=== PATIENT | female | born 2000 | race Caucasian/White ===

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

== ENCOUNTER 2018-01-02 13:27 | Emergency (ER) | payer BC, OTHER | END 2018-01-02 14:20 | disposition home or self-care (01) | LOC: ERS 13:27 | DX: O21.9 Vomiting of pregnancy, unspecified (principal); Z3A.09 9 weeks gestation of pregnancy | CPT/HCPCS: 99283 ==

== ENCOUNTER 2018-02-11 08:54 | Emergency (ER) | payer BC, OTHER ==
[2018-02-11 09:21] LABS: Bilirubin Negative (Negative); Blood, Urine Negative (Negative); Clarity CLOUDY (Clear); Glucose, Urine (Dipstick) Negative (Negative); Leukocyte Small (Negative); Nitrite Negative (Negative); Protein, Urine (Dipstick) 30 mg/dL (Neg-Trace); Specific Gravity, Urine 1.019 (1.002-1.036); Urobilinogen 0.2 mg/dL (0.2-1.0)
[2018-02-11 09:22] LABS: Bacteria/HPF Rare-Few HPF (None Seen); Hyaline Casts/LPF 4-6 HYALINE CAST LPF (0-3 Hyaline); Pathc Cast-AUWi Flag 0.29 (0-2.49); RBC/HPF 0-3 HPF (0-3)
[2018-02-11 09:29] LABS: #Eosinphils 0.1 thou/uL (0.0-0.7); #Lymphocytes 0.8 thou/uL (1.20-3.40); #Monocytes 0.5 thou/uL (0.11-0.59); #Neutrophils 9.2 thou/uL (1.40-6.50); %Basophils 0.1 % (0.0-1.0); %Eosinophils 1.1 % (0.0-10.0); %Lymphocytes 7.3 % (28.0-48.0); %Monocytes 4.8 % (0.0-4.0); %Neutrophils 86.7 % (31.0-61.0); Hemoglobin 12.8 g/dL (12.0-16.0); Mean Corpuscular HGB CONC 35.5 g/dL (32.0-36.0); Mean Corpuscular Hemoglobin 31.1 pg (25.0-35.0); Mean Corpuscular Volume 87.6 fL (78.0-98.0); Mean Platelet Volume 6.8 fL (7.4-10.4); Platelet Count 180 thou/uL (130-400); RBC Distribution Width 12.2 % (11.5-14.5); Red Blood Cell (RBC) Count 4.12 mill/uL (4.00-5.20); White Blood Cell (WBC) Count 10.6 thou/uL (4.8-10.8)
[2018-02-11] MEDS ORDERED: Metoclopramide HCl 10 MG/2 ML VIAL ONE (09:31)
[2018-02-11 09:51] LABS: ALT (SGPT) 33 U/L (8-55); AST (SGOT) 21 U/L (5-30); Albumin 3.9 g/dL (3.5-5.0); Alkaline Phosphatase 55 U/L (40-150); Anion Gap 13 mmol/L (10-20); BUN (Urea Nitrogen) 10 mg/dL (8.4-21.0); Bilirubin, Total 0.3 mg/dL (0.2-1.2); Calc. Creatinine Clearance 0 mL/min (70-130); Calcium 9.5 mg/dL (7.8-10.44); Carbon Dioxide 18 mmol/L (22-29); Chloride 107 mmol/L (98-107); Estimated GFR-MDRD Greater than 90; Globulin 3.3 g/dL (2.4-3.5); Glucose 87 mg/dL (70-105); Potassium 4.3 mmol/L (3.5-5.1); Protein, Total 7.2 g/dL (6.0-8.3); Sodium 134 mmol/L (136-145)
== END 2018-02-11 11:50 | disposition home or self-care (01) ==
LOC: ERS 08:54
DX: O21.9 Vomiting of pregnancy, unspecified (principal); O23.42 Unspecified infection of urinary tract in pregnancy, second trimester; Z3A.15 15 weeks gestation of pregnancy
CPT/HCPCS: 80053; 81003; 81015; 84702; 85025; 96365; J2765

== ENCOUNTER 2018-03-07 13:29 | Outpatient (CLI) | payer BC, OTHER | END 2018-03-07 13:30 | disposition home or self-care (01) | LOC: BICULT 13:29 | PROVIDERS: ATTEND Family Medicine | DX: Z34.02 Encounter for supervision of normal first pregnancy, second trimester (principal); Z3A.20 20 weeks gestation of pregnancy | CPT/HCPCS: 76805 ==

== ENCOUNTER 2018-03-21 13:45 | Day surgery (SDC) | payer BC, OTHER ==
[2018-03-21 14:37] VITALS: BMI 33.2
--- NOTE | 2018-03-21 17:40 | PRG ---
DATE OF SERVICE: 03/21/2018 HISTORY OF PRESENT ILLNESS: The patient is a 17-year-old G1, P0 female with an intrauterine pregnanc y at 22 weeks, who is presenting to Labor and Delivery due to decreased movement today. The lashawn juradocarolee reports she has not felt her baby move and here for evaluation upon the clinic's recommendation s. The patient denies any recent illness, fever, fall, headache, chest pain, shortness of breath, na usea, vomiting, diarrhea, constipation. She denies any skin rashes, hip problems, knee problems or m uscle weakness. She denies vaginal bleeding or leakage of fluid. She denies urinary urgency. PAST MEDICAL HISTORY: Negative. PAST SURGICAL HISTORY: Includes ear tubes and tonsillectomy as a child. ALLERGIES: No known drug allergies. MEDICATIONS: vitamins. REVIEW OF SYSTEMS: Per HPI. OB LABORATORY DATA: Unavailable at time of dictation. PHYSICAL EXAMINATION: VITAL SIGNS: Blood pressure 108/63, heart rate 96, satting 98% on room air. GENERAL: She appears to be in no acute distress. She is alert and oriented, cooperative and pleasan t to interact with. HEAD: Normocephalic, atraumatic. LUNGS: Clear to auscultation bilaterally. CARDIOVASCULAR: Heart has regular rate and rhythm. ABDOMEN: Gravid, soft, nontender. EXTREMITIES: Nontender, nonedematous. GENITOURINARY: Has been deferred. Bedside ultrasound was performed showing subjectively normal fluid, an active fetus with gross body m ovements, flexion and extension, heart rate in the 140s. ASSESSMENT AND PLAN: The patient is a 17-year-old female with an intrauterine at 22 weeks, presenting for a day history of decreased movement. The patient has been given reassurance. Heart tones are within normal limits. The fetus has normal fluid and is otherwise performing expecte d activities. Reassurance has been given to the patient. She has instructions to follow up with her primary OB on the 5th of the month as scheduled. Fetus has a reactive NST and category 1 tracing.
== END 2018-03-21 15:15 | disposition home or self-care (01) ==
LOC: L&D/OP 13:45
PROVIDERS: ATTEND Family Medicine
DX: O36.8120 Decreased fetal movements, second trimester, not applicable or unspecified (principal); Z3A.22 22 weeks gestation of pregnancy
CPT/HCPCS: 76815; 99282

== ENCOUNTER 2018-05-14 08:44 | Day surgery (SDC) | payer BC, OTHER ==
[2018-05-14 09:32] VITALS: BMI 35.2
--- NOTE | 2018-05-14 10:17 | PRG ---
DATE OF SERVICE: 05/14/2018 PRESENTING COMPLAINT: Decreased movement and left lower quadrant pain at 29 weeks gestation. HISTORY OF PRESENT ILLNESS: Ms. Lao is a 17-year-old primigravida with EDC that places her at 29 weeks gestation. Antepartum record is not available. The patient reports that she has had decreased movement this morning. She also complains of approximately 6-12 hours of pain on the left karthikeyan e that starts in the groin and radiates around to her back. She denies dysuria, frequency, fever, ch ills, nausea, vomiting, vaginal discharge or rupture of membranes. OB AND [employer] HISTORY: As noted. Positive history of chlamydia in the past. PAST MEDICAL HISTORY: Previous history of tachycardia evaluated by Cardiology with Holter monitor an d no pathologic findings noted. PAST SURGICAL HISTORY: PE tubes. ALLERGIES: Denies. MEDICATIONS: vitamins. SOCIAL HISTORY: Denies tobacco, alcohol, or drug abuse. FAMILY HISTORY/REVIEW OF SYSTEMS: Noncontributory. PHYSICAL EXAMINATION: GENERAL: White female in no acute distress on initial presentation. VITAL SIGNS: The patient had a pulse of 120s to 130s with a blood pressure 100/50. When she laid do wn her blood pressure improves slightly and her pulse dropped into the 80s. A repeat tilt afterwards did not reveal maternal tachycardia. Pulse ox is 98%, temperature 98.6, respirations 18. HEENT: Within normal limits. LUNGS: Clear to auscultation bilaterally. HEART: Regular rhythm. ABDOMEN: Soft, nontender with a fundal height 30 cm. FHTs are 130s to 140s. PELVIC: Deferred. No CVA tenderness noted. The patient has discomfort on palpation over the inguin al canal and area of the round ligament. EXTREMITIES: Without clubbing, cyanosis or edema. nonstress test was carried out for greater than 20 minutes, positive accelerations, no decelera tions were noted. No contractions were noted. Reactive nonstress test was noted. The patient perce ived movement throughout that was also audible. IMPRESSION: 1. Decreased movement at 29 weeks gestation, resolved. 2. Round ligament pain. 3. Postural hypotension consistent with early third trimester . PLAN: Reassurance, encourage p.o. intake. Keep scheduled followup and return as needed.
== END 2018-05-14 10:14 | disposition home health service (06) ==
LOC: L&D/OP 08:44
PROVIDERS: ATTEND Family Medicine
DX: O36.8130 Decreased fetal movements, third trimester, not applicable or unspecified (principal); O99.89 Other specified diseases and conditions complicating pregnancy, childbirth and the puerperium; R10.32 Left lower quadrant pain; O26.53 Maternal hypotension syndrome, third trimester; Z3A.29 29 weeks gestation of pregnancy
CPT/HCPCS: 99282

== ENCOUNTER 2018-07-26 06:16 | Inpatient (IN) | payer BC, OTHER ==
[2018-08-02] MEDS ORDERED: NS w/ Oxytocin 10 units 500 ML IV SCH (22:40)
[2018-08-02] MEDS ORDERED: Zolpidem Tartrate 5 MG TAB PO PRN (22:40)
[2018-08-02] MEDS ORDERED: Promethazine HCl 25 MG/ML VIAL IM PRN (22:40)
[2018-08-02] MEDS ORDERED: Ibuprofen 800 MG TAB PO PRN (22:40)
[2018-08-02] MEDS ORDERED: Ondansetron PF 4 MG/2 ML Vial IVP PRN (22:40)
[2018-08-02] MEDS ORDERED: NS / Oxytocin 40 units/1000ml 1,000 ML IV PRN (22:40)
[2018-08-02] MEDS ORDERED: Acetaminophen/Codeine 30-300mg Tablet PO PRN (22:40)
[2018-08-02] MEDS ORDERED: HYDROcodone/Acetaminophen 5/325 mg Tablet PO PRN (22:40)
[2018-08-02] MEDS ORDERED: Misoprostol 200 MCG TAB PR PRN (22:40)
[2018-08-02] MEDS ORDERED: Lidocaine 1% (PF) 30 ML VIAL SC PRN (22:40)
[2018-08-02 22:54] VITALS: BMI 38.5
[2018-08-02] MEDS: NS w/ Oxytocin 10 units 500 ML IV SCH (23:12)
[2018-08-02] MEDS: Lactated Ringer's 1,000 ML IV SCH (23:12)
[2018-08-02] MEDS: Misoprostol 100 MCG TAB VAG SCH (23:12)
[2018-08-02 23:32] LABS: Hemoglobin 11.8 g/dL (12.0-16.0); Mean Corpuscular HGB CONC 34.2 g/dL (32.0-36.0); Mean Corpuscular Hemoglobin 30.1 pg (25.0-35.0); Mean Corpuscular Volume 87.9 fL (78.0-98.0); Mean Platelet Volume 7.1 fL (7.4-10.4); Platelet Count 243 thou/uL (130-400); RBC Distribution Width 14.1 % (11.5-14.5); Red Blood Cell (RBC) Count 3.93 mill/uL (4.00-5.20); White Blood Cell (WBC) Count 11.2 thou/uL (4.8-10.8)
[2018-08-03 00:12] LABS: Syphilis Antibody Nonreactive (Nonreactive); Syphilis Antibody Index 0.05 S/CO (<1.00 Non-Reactive)
[2018-08-03 00:13] LABS: HBSAg Index 0.28 S/CO (0-0.99); Hep B Surf Ag Non-Reactive S/CO (NonReactive)
[2018-08-03] MEDS: Misoprostol 100 MCG TAB VAG SCH ×3 (04:44→14:13)
[2018-08-03] MEDS ORDERED: Ampicillin 2 GM in Sodium Chloride 0.9% 100 ML IVPB SCH (06:15)
[2018-08-03] MEDS ORDERED: Penicillin G Potassium 5 MILL.UNITS in Sodium Chloride 0.9% 100 ML IVPB SCH (06:30)
[2018-08-03] MEDS: Lactated Ringer's 1,000 ML IV SCH ×2 (06:37→21:30)
[2018-08-03] MEDS: NS w/ Oxytocin 10 units 500 ML IV SCH ×2 (06:38→22:40)
[2018-08-03] MEDS ORDERED: Butorphanol Tartrate 1 MG/ML VIAL ONE (09:13)
[2018-08-03] MEDS ORDERED: Penicillin G 2.5 MILL.units 50 ML ONE ×3 (09:14→18:06)
[2018-08-03] MEDS ORDERED: Lidocaine 1.5% w/Epi 1:200K 30 ML VIAL (Epid Use) ONE (10:37)
[2018-08-03] MEDS ORDERED: Fentanyl 4 mcg/Bup 0.1% Cadd 100 ML ONE ×3 (10:38→22:14)
[2018-08-03] MEDS ORDERED: Lidocaine 2% MPF 10 ML AMP (For Epidural Use) ONE (11:11)
[2018-08-03] MEDS ORDERED: Bupivacaine 0.25% HCL 30 ML VIAL ONE (11:11)
[2018-08-03] MEDS: Dextrose 5%-Lactated Ringers 1,000 ML IV SCH (11:35)
[2018-08-03] MEDS ORDERED: Ampicillin 1 GM in Sodium Chloride 0.9% 100 ML IVPB SCH (12:00)
[2018-08-03] MEDS ORDERED: Eucerin (Mineral Oil/Petrolatum,White) 30 gm Jar TOP PRN (13:13)
[2018-08-03] MEDS ORDERED: ePHEDrine/0.9% NaCl/PF SYRINGE 50 mg/10 ml SLOW IVP PRN (13:13)
[2018-08-03] MEDS ORDERED: Ondansetron PF 4 MG/2 ML Vial IVP PRN (13:13)
[2018-08-03] MEDS ORDERED: diphenhydrAMINE 50 MG/ML VIAL IVP PRN (13:13)
[2018-08-03] MEDS ORDERED: Naloxone HCl 0.4 mg/ml Vial IVP PRN ×2 (13:13)
[2018-08-03] MEDS ORDERED: Acetaminophen 325 MG TAB PO PRN (13:13)
[2018-08-03] MEDS ORDERED: Lactated Ringer's 500 ML IV PRN (13:13)
[2018-08-03] MEDS ORDERED: Promethazine HCl 25 MG/ML VIAL IM PRN (13:13)
[2018-08-03] MEDS ORDERED: Communication Order-Pharmacy FS SCH (13:15)
[2018-08-03] MEDS ORDERED: Fentanyl 4 mcg/Bupivacaine 0.1% Cassette 100 ML EPIDURAL SCH (13:15)
[2018-08-03] MEDS ORDERED: Acetaminophen 500 MG TAB PO PRN (16:22)
[2018-08-03] MEDS ORDERED: Acetaminophen 500 MG TAB PO SCH (16:30)
[2018-08-03] MEDS: Penicillin G 2.5 MILL.units 2.5 MILL.UNITS in Premix Bag 1 BAG IVPB SCH (22:39)
[2018-08-04] MEDS ORDERED: Preparation H Ointment 28 GM TUBE PR PRN (02:19)
[2018-08-04] MEDS ORDERED: Lanolin Ointment 7 GM TUBE TOP PRN (02:19)
[2018-08-04] MEDS ORDERED: NS / Oxytocin 40 units/1000ml 1,000 ML IV SCH (02:19)
[2018-08-04] MEDS ORDERED: Bisacodyl 10 MG SUPP PR PRN (02:19)
[2018-08-04] MEDS ORDERED: Ondansetron PF 4 MG/2 ML Vial IVP PRN (02:19)
[2018-08-04] MEDS ORDERED: diphenhydrAMINE 25 MG CAP PO PRN (02:19)
[2018-08-04] MEDS ORDERED: Milk Of Magnesia 30 ML UDCUP PO PRN (02:19)
[2018-08-04] MEDS ORDERED: Benzocaine/Menthol 20-0.5% 60 ML CAN TOP PRN (02:19)
[2018-08-04] MEDS ORDERED: Acetaminophen/Codeine 30-300mg Tablet PO PRN (02:19)
[2018-08-04] MEDS ORDERED: HYDROcodone/Acetaminophen 5/325 mg Tablet PO PRN (02:19)
[2018-08-04] MEDS: Ibuprofen 800 MG TAB PO SCH ×3 (03:31→21:29)
[2018-08-04] MEDS: Dextrose 5%-Lactated Ringers 1,000 ML IV SCH ×4 (04:00→21:52)
[2018-08-04] MEDS: Penicillin G 2.5 MILL.units 2.5 MILL.UNITS in Premix Bag 1 BAG IVPB SCH ×4 (04:00→21:54)
[2018-08-04] MEDS: Penicillin G Potassium 2.5 MILL.UNITS in Sodium Chloride 0.9% 50 ML IVPB SCH (04:01)
[2018-08-04] MEDS: Misoprostol 100 MCG TAB VAG SCH ×2 (04:01→04:02)
[2018-08-04] MEDS: Lactated Ringer's 1,000 ML IV SCH (04:02)
[2018-08-04] MEDS: Prenatal Vitamin 1 TAB PO SCH (09:30)
[2018-08-04] MEDS: Ferrous Sulfate 325 MG TAB PO SCH ×2 (09:31→18:29)
[2018-08-04] MEDS: Docusate Calcium (SURFAK) 240 MG CAP PO SCH ×2 (10:28→21:30)
[2018-08-05] MEDS: Ibuprofen 800 MG TAB PO SCH ×2 (06:19→14:36)
[2018-08-05] MEDS: Penicillin G 2.5 MILL.units 2.5 MILL.UNITS in Premix Bag 1 BAG IVPB SCH ×3 (06:21→09:20)
[2018-08-05] MEDS: Dextrose 5%-Lactated Ringers 1,000 ML IV SCH ×2 (06:22→14:35)
[2018-08-05] MEDS: Ferrous Sulfate 325 MG TAB PO SCH (09:20)
[2018-08-05] MEDS: Prenatal Vitamin 1 TAB PO SCH (09:22)
[2018-08-05] MEDS: Docusate Calcium (SURFAK) 240 MG CAP PO SCH (09:22)
--- NOTE | 2018-08-05 10:33 | PDOC.PP ---
Post Progress Note Post Day #: 2 Subjective: Doing well, feeling better, working on , wants to go home. PO intake tolerated: yes Flatus: yes Ambulation: yes Vital Signs (12 hours) Temp Pulse Resp BP Pulse Ox 08/05/18 08:00 98.1 F 87 18 122/63 96 Weight Weight 253 lb - Physical Examination General: NAD Cardiovascular: no m/r/g, RRR Respiratory: clear to auscultation bilaterally, non-labored breathing Abdominal: + bowel sounds, lochia, no distention, appropriately TTP Result Diagrams: 08/02/18 23:21 Additional Labs: Post Labs Blood Type A NEGATIVE 08/02/18 23:21 Hep Bs Antigen Non-Reactive S/CO (NonReactive) 08/02/18 23:21 (1) Vaginal delivery Code(s): O80 - ENCOUNTER FOR FULL-TERM UNCOMPLICATED DELIVERY Status: Acute - Assessment/Plan Routine PP care D/C home F/U in 6 weeks with AD F/U with baby in 1-2 days
[2018-08-05 15:04] VITALS: BP 121/58; TEMP 97.9
== END 2018-08-05 15:15 | disposition home or self-care (01) | DRG 807 ==
LOC: EDSTATUS 11:29 → L&D 08-02 21:59 → 3SW 08-04 02:31
PROVIDERS: ADMIT Family Medicine; ATTEND Family Medicine
PROC: 10907ZC Drainage of Amniotic Fluid, Therapeutic from Products of Conception, Via Natural or Artificial Opening (ICD-10-PCS; principal; 2018-08-02)
PROC: 10E0XZZ Delivery of Products of Conception, External Approach (ICD-10-PCS; 2018-08-02)
PROC: 0KQM0ZZ Repair Perineum Muscle, Open Approach (ICD-10-PCS; 2018-08-02)
PROC: 3E033VJ Introduction of Other Hormone into Peripheral Vein, Percutaneous Approach (ICD-10-PCS; 2018-08-02)
DX: O48.0 Post-term pregnancy (principal); Z37.0 Single live birth; Z3A.41 41 weeks gestation of pregnancy; O99.824 Streptococcus B carrier state complicating childbirth; O70.1 Second degree perineal laceration during delivery
CPT/HCPCS: 36415; 51702; 85027; 85461; 86780; 86850; 86900; 86901; 87340; 90384; 96372; J0595; J2001; J2540; J7050; S0020

== ENCOUNTER 2024-09-05 15:19 | Outpatient (CLI) | payer BC, OTHER | END 2024-09-05 15:20 | disposition home or self-care (01) | LOC: ULT 15:19 | DX: Z34.92 Encounter for supervision of normal pregnancy, unspecified, second trimester (principal); Z3A.21 21 weeks gestation of pregnancy | CPT/HCPCS: 76805 ==